=== PATIENT | male | born 1950 | race Two or more races ===

== ENCOUNTER 2020-09-20 12:24 | Emergency (ER) | payer OTHER ==
[~2020-09-20] VITALS: Ht 180.3 cm; Wt 56.2 kg
[2020-09-20] MEDS ORDERED: PLAVIX75 MG (12:32)
[2020-09-20] MEDS ORDERED: NORFLEX100MG PO (14:01)
== END 2020-09-20 14:06 | disposition home or self-care (01) ==
LOC: ER 12:24
DX: M54.5 Low back pain (principal)

== ENCOUNTER 2024-06-10 14:32 | Inpatient (IN) | payer OTHER ==
[~2024-06-10] VITALS: Ht 165.1 cm; Wt 54.4 kg
[~2024-06-10 14:32] MED LIST: NORFLEX100MG PO; PLAVIX75 MG
[2024-06-10] MEDS ORDERED: PROSCAR5 MG (15:19)
[2024-06-10] MEDS ORDERED: SINGULAIR10 MG (15:19)
[2024-06-10] MEDS ORDERED: ZESTRIL2.5 MG (15:19)
[2024-06-10] MEDS ORDERED: ALLERGY RELIE15.8 ML (15:19)
[2024-06-10] MEDS ORDERED: ATORVASTATIN CA20 MG (15:20)
[2024-06-10] MEDS ORDERED: VENTOLIN HFA18 GM (15:20)
[2024-06-10] MEDS ORDERED: XYZAL5 MG (15:20)
[2024-06-10] MEDS ORDERED: LEVALBUTEROL HCL 1.25 MG/3 ML SOLUTION IH STA (15:44)
[2024-06-10] MEDS ORDERED: BUDESONIDE 0.5 MG/2 ML AMPUL.NEB IH STA (15:45)
[2024-06-10] MEDS ORDERED: METHYLPREDNISOLONE SOD SUCC 125 MG VIAL IV STA (15:45)
[2024-06-10] MEDS ORDERED: IPRATROPIUM BROMIDE 0.5 MG/2.5 ML AMPUL.NEB IH STA (15:45)
[2024-06-10] MEDS ORDERED: MAGNESIUM SULFATE IN WATER 4 GM/100 ML PIGGYBACK IV STA (15:47)
[2024-06-10 15:51] LABS: HEMATOCRIT 45.3 % (39.0-48.0); HEMOGLOBIN 15.8 g/dL (13-16.00); MEAN CELL VOLUME 98.7 fL (80.0-100.00); MEAN CORPUSCULAR HEMOGLOBIN 34.4 pg (27.00-32.0); MEAN CORPUSCULAR HGB CONC 34.9 g/dl (32.0-36.0); PLATELET COUNT 273 K/uL (150-450); RED BLOOD COUNT 4.59 M/uL (4.00-6.00); RED CELL DISTRIBUTION WIDTH 14.1 % (11.5-14.5)
[2024-06-10] MEDS ORDERED: METHYLPREDNISOLONE SOD SUCC 125 MG VIAL ONE (15:51)
[2024-06-10] MEDS ORDERED: LEVALBUTEROL HCL 0.63 MG/3 ML SOLUTION IH ONE ×2 (16:19→21:18)
[2024-06-10] MEDS ORDERED: BUDESONIDE 0.5 MG/2 ML AMPUL.NEB IH ONE ×2 (16:19→21:18)
[2024-06-10] MEDS ORDERED: IPRATROPIUM BROMIDE 0.5 MG/2.5 ML AMPUL.NEB IH ONE ×2 (16:19→21:18)
[2024-06-10 16:20] LABS: D DIMER 0.35 MG/L; PARTIAL THROMBOPLASTIN TIME 27.7 SECONDS (22.0-34.0)
[2024-06-10 16:24] LABS: ALBUMIN 4.1 gm/dL (3.4-5.0); BILIRUBIN TOTAL 1.09 mg/dL (0.3-1.2); CALCIUM 9.9 mg/dL (8.5-10.1); CREATININE SERUM 0.77 mg/dL (0.70-1.30); GFR 99.03; GLOBULINA 2.9 G/DL (2.4-3.5); POTASSIUM 4.49 mEq/L (3.5-5.1)
[2024-06-10 17:05] LABS: INR 0.98
[2024-06-10] MEDS ORDERED: BUDESONIDE 0.5 MG/2 ML AMPUL.NEB IH SCH (17:56)
[2024-06-10] MEDS ORDERED: LEVALBUTEROL HCL 1.25 MG/3 ML SOLUTION IH SCH (17:57)
[2024-06-10] MEDS ORDERED: IPRATROPIUM BROMIDE 0.5 MG/2.5 ML AMPUL.NEB IH SCH (17:57)
[2024-06-10] MEDS ORDERED: NICOTINE 21MG/24HR PATCH.TD24 TD SCH (17:59)
[2024-06-10] MEDS ORDERED: ACETAMINOPHEN 500 MG GEL..CAP PO PRN (18:00)
[2024-06-10] MEDS ORDERED: ONDANSETRON HCL 4 MG in 0.9 % SODIUM CHLORIDE 50 ML IV PRN (18:00)
[2024-06-10] MEDS ORDERED: 0.9 % SODIUM CHLORIDE 1,000 ML IV SCH (18:00)
[2024-06-10] MEDS ORDERED: AZITHROMYCIN 500 MG VIAL IV ONE (20:34)
[2024-06-10] MEDS ORDERED: FAMOTIDINE/PF 20 MG/2 ML VIAL ONE (20:35)
[2024-06-10] MEDS ORDERED: CEFEPIME HCL 2,000 MG VIAL ONE (20:35)
[2024-06-10] MEDS ORDERED: FAMOTIDINE/PF 20 MG in 0.9 % SODIUM CHLORIDE 8 ML IV PUSH SCH (21:00)
[2024-06-10] MEDS ORDERED: CEFEPIME HCL 2,000 MG in 0.9 % SODIUM CHLORIDE 100 ML IV SCH (21:00)
[2024-06-10] MEDS ORDERED: AZITHROMYCIN 500 MG in DEXTROSE 5 % IN WATER 250 ML IV SCH (21:00)
[2024-06-10 22:42] LABS: ABG PH 7.408 (7.35-7.45); ABG PO2 58.4 mmHg (80-100); ABG pCO2 34.1 mmHg (35-45); BASE EXCESS -2.8 mmol/l; o2 21 %
[2024-06-10 22:43] LABS: allen test SATISFACTORY; puncture site RADIAL LEFT
[2024-06-10 22:44] LABS: SaO2 89.9 %
[2024-06-10] MEDS ORDERED: METHYLPREDNISOLONE SOD SUCC 40 MG VIAL ONE (23:46)
[2024-06-11] MEDS ORDERED: METHYLPREDNISOLONE SOD SUCC 40 MG VIAL IV SCH (01:00)
[2024-06-11] MEDS ORDERED: LEVALBUTEROL HCL 0.63 MG/3 ML SOLUTION IH ONE (01:31)
[2024-06-11] MEDS ORDERED: CEFEPIME HCL 2,000 MG VIAL ONE ×2 (04:28→04:49)
[2024-06-11] MEDS ORDERED: LEVALBUTEROL HCL 1.25 MG/3 ML SOLUTION IH ONE ×2 (08:48→16:51)
[2024-06-11] MEDS ORDERED: BUDESONIDE 0.5 MG/2 ML AMPUL.NEB IH ONE (08:48)
[2024-06-11] MEDS ORDERED: IPRATROPIUM BROMIDE 0.5 MG/2.5 ML AMPUL.NEB IH ONE ×2 (08:48→16:51)
[2024-06-11 08:57] LABS: PH,URINE 5.5 (5.0-8.0); URINE BILIRRUBIN Negative (NEGATIVE); URINE BLOOD Negative; URINE COLOR Yellow; URINE GLUCOSE Negative (NEGATIVE); URINE KETONE 15 (NEGATIVE); URINE LEUKOCYTE Trace; URINE NITRATE Negative; URINE PROTEIN Negative (NEGATIVE); URINE UROBILINOGEN 0.2 E.U./dl
[2024-06-11 08:59] LABS: URINE BACTERIA 6.2 uL (0.0-1933); URINE EPITHELIAL CELLS 4.3 uL (0.0-38.8); URINE WBC 11.7 uL (0.0-23.2)
[2024-06-11] MEDS ORDERED: NICOTINE 21MG/24HR PATCH.TD24 TD SCH (09:00)
[2024-06-11] MEDS ORDERED: ENOXAPARIN SODIUM 40 MG/0.4 ML SYRINGE SUBCUTANEO SCH (09:00)
[2024-06-11] MEDS ORDERED: FINASTERIDE 5 MG TABLET PO SCH (09:00)
[2024-06-11] MEDS ORDERED: LISINOPRIL 20 MG TABLET PO SCH (09:00)
[2024-06-11 09:03] LABS: URINE APPEARANCE CLEAR; URINE RBC 1.5 uL (0.0-20.8)
[2024-06-11] MEDS ORDERED: TAMSULOSIN HCL0.4 MG (09:05)
[2024-06-11] MEDS ORDERED: METOPROLOL SUCC25 MG (09:05)
[2024-06-11] MEDS ORDERED: TRELEGY ELLIPT1 EACH (09:05)
[2024-06-11] MEDS ORDERED: AMMONIUM LACTA385 GM (09:05)
[2024-06-11 10:28] LABS: ABG PH 7.331 (7.35-7.45); ABG PO2 80.7 mmHg (80-100); ABG pCO2 41.4 mmHg (35-45); BASE EXCESS -3.9 mmol/l; SaO2 94.7 %
[2024-06-11 10:29] LABS: BICARBONATE 21.7 mmol/l (23-25); Tco2 22.9 mmol/l; allen test SATISFACTORY; o2 21 %; puncture site RADIAL RIGHT
[2024-06-11] MEDS ORDERED: TAMSULOSIN HCL 0.4 MG CAP PO ONE (15:21)
[2024-06-11] MEDS ORDERED: levoFLOXacin IN DEXTROSE 5 % 150 ML IV SCH (17:00)
[2024-06-11] MEDS ORDERED: TAMSULOSIN HCL 0.4 MG CAP PO SCH (17:00)
[2024-06-11] MEDS ORDERED: MONTELUKAST SODIUM 10 MG TABLET PO SCH (17:00)
[2024-06-12 06:12] LABS: HEMATOCRIT 39.5 % (39.0-48.0); HEMOGLOBIN 13.7 g/dL (13-16.00); MEAN CELL VOLUME 100.2 fL (80.0-100.00); MEAN CORPUSCULAR HEMOGLOBIN 34.9 pg (27.00-32.0); MEAN CORPUSCULAR HGB CONC 34.8 g/dl (32.0-36.0); PLATELET COUNT 219 K/uL (150-450); RED BLOOD COUNT 3.94 M/uL (4.00-6.00); RED CELL DISTRIBUTION WIDTH 13.9 % (11.5-14.5)
[2024-06-12 06:51] LABS: ALBUMIN 3.1 gm/dL (3.4-5.0); ALKALINE PHOSPHATASE 68 U/L (50-136); ALT/SGPT 28 U/L (12-78); ANION GAP 17 (10.0-20.0); AST/SGOT 33 U/L (15-37); BILIRUBIN TOTAL 0.53 mg/dL (0.3-1.2); BLOOD UREA NITROGEN 15 mg/dL (7-18); BUN CREA RATIO 22 (7.0-25.0); CALCIUM 8.6 mg/dL (8.5-10.1); CARBON DIOXIDE 25 mEq/L (21-32); CHLORIDE 110 mmol/L (98-107); CREATININE SERUM 0.68 mg/dL (0.70-1.30); GLOBULINA 2.3 G/DL (2.4-3.5); GLUCOSE FASTING 131 mg/dL (65-100); OSMOLALITY SERUM 297 MOSM/KG (275-295); PHOSPHOROUS 2.9 mg/dL (2.5-4.9); POTASSIUM 4.18 mEq/L (3.5-5.1); SODIUM 148 mmol/L (136-145); TOTAL PROTEIN 5.4 gm/dL (6.4-8.2)
[2024-06-12 06:54] LABS: C-REACTIVE PROTEIN < 0.29 MG/DL (0.00-0.29)
[2024-06-12] MEDS ORDERED: XYZAL5 MG PO (11:28)
[2024-06-12] MEDS ORDERED: CEFDINIR300 MG PO (11:29)
[2024-06-12] MEDS ORDERED: VENTOLIN HFA18 GM PO (11:30)
[2024-06-12] MEDS ORDERED: MEDROLPACK PO (11:30)
[2024-06-12] MEDS ORDERED: SODIUM CHLORIDE 0.45 % 1,000 ML IV SCH (11:30)
[2024-06-12] MEDS ORDERED: NICOTINE 21MG/24HR P TD (11:31)
[2024-06-12] MEDS ORDERED: IPRATROPIU0.2 MG/1 M IH (11:31)
[2024-06-12] MEDS ORDERED: XOPENEX CO1.25 MG/0. IH (11:31)
[2024-06-12] MEDS ORDERED: TAMS0.4C PO (11:31)
[2024-06-12] MEDS ORDERED: PLAVIX75 MG PO (11:32)
[2024-06-12] MEDS ORDERED: ATORVASTATIN CA20 MG PO (11:33)
[2024-06-12] MEDS ORDERED: BUDESONIDE0.5 MG/2 M IH (11:33)
[2024-06-12] MEDS ORDERED: MONTELUKAST SOD10 MG PO (11:33)
[2024-06-12] MEDS ORDERED: FINASTERIDE5 MG PO (11:34)
[2024-06-12] MEDS ORDERED: ALLERGY RELIE15.8 ML NASAL (11:34)
[2024-06-12] MEDS ORDERED: ABATINEX680 MG PO (11:35)
[2024-06-12] MEDS ORDERED: VITAMIN D3125 MCG PO (11:35)
[2024-06-12] MEDS ORDERED: LOTREL 5-10 MG1 CAP PO (11:36)
[2024-06-12] MEDS ORDERED: METHYLPREDNISOLONE ACETATE 80 MG/ML VIAL IM NR (12:55)
[2024-06-12 17:09] LABS: ABG PH 7.425 (7.35-7.45); ABG PO2 52.1 mmHg (80-100); ABG pCO2 36.5 mmHg (35-45); BASE EXCESS -0.5 mmol/l; BICARBONATE 23.4 mmol/l (23-25); SaO2 87.3 %
[2024-06-12 17:10] LABS: Tco2 24.5 mmol/l; allen test SATISFACTORY; o2 21 %; puncture site RADIAL RIGHT
[2024-06-13] MEDS ORDERED: FAMOTIDINE/PF 20 MG/2 ML VIAL ONE (19:25)
== END 2024-06-15 18:41 | disposition home or self-care (01) | DRG 191 ==
LOC: ER 14:33 → SEC-K 18:37 → MEDI 06-11 19:40
PROVIDERS: General Practice; Internal Medicine Infectious Disease; ADMIT Internal Medicine; ATTEND Internal Medicine
PROC: BB24ZZZ Computerized Tomography (CT Scan) of Bilateral Lungs (ICD-10-PCS; principal; 2024-06-10)
PROC: 3E0F7GC Introduction of Other Therapeutic Substance into Respiratory Tract, Via Natural or Artificial Opening (ICD-10-PCS; 2024-06-10)
PROC: 4A12X4Z Monitoring of Cardiac Electrical Activity, External Approach (ICD-10-PCS; 2024-06-11)
DX: J44.1 Chronic obstructive pulmonary disease with (acute) exacerbation (principal); J45.41 Moderate persistent asthma with (acute) exacerbation; J20.9 Acute bronchitis, unspecified; I10 Essential (primary) hypertension

== ENCOUNTER 2024-09-28 12:09 | Emergency (ER) | payer OTHER ==
[~2024-09-28] VITALS: Ht 180.3 cm; Wt 47.6 kg
[~2024-09-28 12:09] MED LIST changes: +ABATINEX680 MG PO; +ALLERGY RELIE15.8 ML; +ALLERGY RELIE15.8 ML NASAL; +AMMONIUM LACTA385 GM; +ATORVASTATIN CA20 MG; +ATORVASTATIN CA20 MG PO; +BUDESONIDE0.5 MG/2 M IH; +CEFDINIR300 MG PO; +FINASTERIDE5 MG PO; +IPRATROPIU0.2 MG/1 M IH; +LOTREL 5-10 MG1 CAP PO; +MEDROLPACK PO; +METOPROLOL SUCC25 MG; +MONTELUKAST SOD10 MG PO; +NICOTINE 21MG/24HR P TD; +PLAVIX75 MG PO; +PROSCAR5 MG; +SINGULAIR10 MG; +TAMS0.4C PO; +TAMSULOSIN HCL0.4 MG; +TRELEGY ELLIPT1 EACH; +VENTOLIN HFA18 GM; +VENTOLIN HFA18 GM PO; +VITAMIN D3125 MCG PO; +XOPENEX CO1.25 MG/0. IH; +XYZAL5 MG; +XYZAL5 MG PO; +ZESTRIL2.5 MG
[2024-09-28] MEDS ORDERED: DEXAMETHAS0.5 MG/5 M (13:42)
[2024-09-28] MEDS ORDERED: TOPROL XL25 M1 (13:44)
[2024-09-28] MEDS ORDERED: LEVALBUTEROL HCL 0.63 MG/3 ML SOLUTION IH ONE (14:15)
[2024-09-28] MEDS ORDERED: IPRATROPIUM BROMIDE 0.5 MG/2.5 ML AMPUL.NEB IH ONE (14:15)
[2024-09-28] MEDS ORDERED: METHYLPREDNISOLONE SOD SUCC 40 MG VIAL IV ONE (14:15)
[2024-09-28] MEDS ORDERED: CEFTRIAXONE SODIUM 1,000 MG VIAL IV ONE (14:30)
[2024-09-28 15:15] LABS: ABG PH 7.358 (7.35-7.45); ABG PO2 76.9 mmHg (80-100); ABG pCO2 44.3 mmHg (35-45); BASE EXCESS -1.3 mmol/l; BICARBONATE 24.4 mmol/l (23-25); SaO2 94.5 %; Tco2 25.8 mmol/l
[2024-09-28 15:16] LABS: allen test SATISFACTORY; o2 32 %; puncture site RADIAL RIGHT
[2024-09-28 15:28] LABS: HEMATOCRIT 45.7 % (39.0-48.0); HEMOGLOBIN 16.1 g/dL (13-16.00); MEAN CELL VOLUME 99.1 fL (80.0-100.00); MEAN CORPUSCULAR HEMOGLOBIN 34.8 pg (27.00-32.0); MEAN CORPUSCULAR HGB CONC 35.1 g/dl (32.0-36.0); PLATELET COUNT 323 K/uL (150-450); RED BLOOD COUNT 4.61 M/uL (4.00-6.00); RED CELL DISTRIBUTION WIDTH 13.8 % (11.5-14.5)
[2024-09-28 15:35] LABS: ALBUMIN 3.8 gm/dL (3.4-5.0); BILIRUBIN TOTAL 0.64 mg/dL (0.3-1.2); CALCIUM 10.1 mg/dL (8.5-10.1); CREATININE SERUM 0.88 mg/dL (0.70-1.30); GFR 84.89; GLOBULINA 3.7 G/DL (2.4-3.5); POTASSIUM 4.05 mEq/L (3.5-5.1); TOTAL PROTEIN 7.5 gm/dL (6.4-8.2)
== END 2024-09-28 16:53 | disposition home or self-care (01) ==
LOC: ER 12:11
PROVIDERS: Emergency Medicine
DX: R53.81 Other malaise (principal); J44.1 Chronic obstructive pulmonary disease with (acute) exacerbation; Z20.822 Contact with and (suspected) exposure to COVID-19
CPT/HCPCS: 36415; 71046; 82803; 94640; 96365; 99283; J0696; J3490